=== PATIENT | male | born 1960 | race Caucasian/White ===

== ENCOUNTER 2024-06-19 10:03 | Emergency (ER) | payer OTHER ==
[2024-06-19] MEDS ORDERED: Morphine 4 MG/ML VIAL ONE (10:54)
[2024-06-19] MEDS ORDERED: Ondansetron PF 4 MG/2 ML Vial ONE (10:54)
== END 2024-06-19 12:41 | disposition home or self-care (01) ==
LOC: CSHERS 10:03
DX: K08.89 Other specified disorders of teeth and supporting structures (principal); I11.0 Hypertensive heart disease with heart failure; I50.9 Heart failure, unspecified
CPT/HCPCS: J2272; J2405; 96374; 96375

== ENCOUNTER 2024-06-29 12:31 | Emergency (ER) | payer OTHER ==
[~2024-06-29 12:31] MED LIST: Iopamidol 300 61% 100 ML VIAL FS ONE
[2024-06-29 13:38] LABS: Hematocrit 42.3 % (38.8-50.0); Hemoglobin 14.1 g/dL (13.5-17.5); Mean Corpuscular HGB CONC 33.3 g/dL (32.0-36.0); Mean Corpuscular Hemoglobin 30.1 pg (27.0-33.0); Mean Corpuscular Volume 90.2 fL (81.2-95.1); Mean Platelet Volume 9.8 fL (7.4-10.4); Platelet Count 450 10x3/uL (150-450); RBC Distribution Width 12.8 % (11.5-14.5); Red Blood Cell (RBC) Count 4.69 10x6/uL (4.32-5.72); White Blood Cell (WBC) Count 20.4 10x3/uL (3.5-10.5)
[2024-06-29 13:41] LABS: ALT (SGPT) 118 U/L (8-55); AST (SGOT) 114 U/L (5-34); Albumin 2.4 g/dL (3.4-4.8); Alkaline Phosphatase 118 U/L (40-110); Anion Gap 19 mmol/L (10-20); BUN (Urea Nitrogen) 26 mg/dL (8.4-25.7); Calc. Creatinine Clearance 0 mL/min (70-130); Calcium 9.2 mg/dL (7.8-10.44); Carbon Dioxide 24 mmol/L (23-31); Chloride 93 mmol/L (98-107); Estimated GFR 69; Globulin 4.4 g/dL (2.4-3.5); Glucose 246 mg/dL (80-115); Lipase 34 U/L (8-78); Potassium 4.4 mmol/L (3.5-5.1); Protein, Total 6.8 g/dL (5.8-8.1); Sodium 132 mmol/L (136-145)
[2024-06-29 13:45] LABS: Troponin I 0.034 ng/mL (< 0.028)
[2024-06-29 14:29] LABS: MDiff Complete? YES
[2024-06-29 14:32] LABS: Band 10 % (5-11); Lymphocytes 8 % (21-51); Monocytes 6 % (0-10); Neutrophil 76 % (42-75)
[2024-06-29 15:58] LABS: Bilirubin Neg (Negative); Blood, Urine 250 (Negative); Clarity Clear (Clear); Glucose, Urine (Dipstick) 50 mg/dL (Negative); Ketone, Urine 5 mg/dL (Negative); Leukocyte Negative (Negative); Nitrite Negative (Negative); Protein, Urine (Dipstick) 100 mg/dl (Neg-Trace); Urobilinogen Normal mg/dL (Less than 2)
[2024-06-29] MEDS ORDERED: Cefepime 2 GM VIAL ONE (16:18)
[2024-06-29] MEDS ORDERED: Vancomycin 1 GM VIAL ONE ×2 (16:19→18:08)
[2024-06-29 16:27] LABS: CAUTI Indications for Culture Alt mental st,lethar
[2024-06-29 16:28] LABS: Bacteria/HPF 2+ HPF (None Seen); Mucous/LPF 3+ LPF (<2+); Squamous Epithelial 0-3 HPF (0-3); Transitional Epithelial 0-3 HPF (None Seen)
[2024-06-29 16:30] LABS: Urine Culture Reflex No No
== END 2024-06-30 01:18 | disposition short-term general hospital (02) ==
LOC: CSHERS 12:31
DX: A41.9 Sepsis, unspecified organism (principal); L03.211 Cellulitis of face; M62.82 Rhabdomyolysis; R41.82 Altered mental status, unspecified; I11.0 Hypertensive heart disease with heart failure; I50.9 Heart failure, unspecified
CPT/HCPCS: 70450; 70486; 71260; 72125; 74177; 80053; 81001; 82550; 83605; 83690; 83735; 84484; 85025; 87040; 87086; 93005; J0692; J3370; 36415; 51701; 96361; 96365; 96366; 96367; Q9967